=== PATIENT | female | born 1985 ===

== ENCOUNTER 2018-06-14 17:07 | Emergency (ER) | payer OTHER ==
[~2018-06-14] VITALS: Ht 170.2 cm; Wt 88.5 kg
--- NOTE | 2018-06-14 17:18 | NUR ---
PT.WAS SEEN BY .
--- NOTE | 2018-06-14 17:41 | NUR ---
PT.WATCHING TV,NO S/S OF ACUTE DISTRESS.
[2018-06-14 17:51] VITALS: BP 138/86
== END 2018-06-14 17:58 | disposition home or self-care (01) ==
LOC: ER 17:08
DX: R07.89 Other chest pain (principal); R20.2 Paresthesia of skin
CPT/HCPCS: 71045; 93005; A4663